=== PATIENT | male | born 1945 | race Caucasian/White ===

== ENCOUNTER → 2019-10-19 | Outpatient (CLI) | payer MEDICARE | END | disposition home or self-care (01) | LOC: OIH 15:08 | PROVIDERS: ATTEND Internal Medicine | DX: J20.9 Acute bronchitis, unspecified (principal); M47.814 Spondylosis without myelopathy or radiculopathy, thoracic region | CPT/HCPCS: 71046 ==

== ENCOUNTER → 2020-04-26 | Outpatient (CLI) | payer MEDICARE | END | disposition home or self-care (01) | LOC: OIH 14:58 | PROVIDERS: ATTEND Internal Medicine | DX: M47.814 Spondylosis without myelopathy or radiculopathy, thoracic region (principal); R07.9 Chest pain, unspecified | CPT/HCPCS: 71046; 72070 ==

== ENCOUNTER 2020-06-12 17:59 | Inpatient (IN) | payer MEDICARE ==
[~2020-06-12] VITALS: Ht 175.3 cm; Wt 49.2 kg
[2020-06-12 19:12] LABS: BASOPHILS % (AUTO) 0.4 % (0.0-5.0); EOSINOPHILS % (AUTO) 0.1 % (0.0-8.0); LYMPHOCYTES % (AUTO) 14.8 % (21.0-51.0); MEAN CORPUSCULAR HEMOGLOBIN 27.6 pg (27.0-33.0); MEAN CORPUSCULAR HGB CONC 32.7 g/dL (32.0-36.0); MEAN CORPUSCULAR VOLUME 84.5 fL (79-99); MONOCYTES % (AUTO) 8.8 % (3.0-13.0); NEUTROPHILS % (AUTO) 75.3 % (40.0-77.0); PLATELET COUNT (AUTO) 279 K/uL (130-400); RED BLOOD CELL COUNT(AUTO) 5.21 MIL/uL (4.50-6.20); RED CELL DISTRIBUTION WIDTH 13.9 % (11.0-15.5); WHITE BLOOD COUNT (AUTO) 15.8 K/uL (4.8-10.8)
[2020-06-12 19:37] LABS: CREATININE 1.4 mg/dL (0.5-1.5); INR 1.02 (0.85-1.15); PARTIAL THROMBOPLASTIN TIME 24.9 SEC (26.3-35.5); POTASSIUM 4.1 mmol/L (3.5-5.1)
[2020-06-12 19:51] LABS: ALBUMIN 3.9 g/dL (3.5-5.0); BILIRUBIN,DIRECT 0.3 mg/dL (0.0-0.3); BILIRUBIN,TOTAL 1.9 mg/dL (0.2-1.0); TOTAL PROTEIN, SERUM 8.1 g/dL (6.0-8.3)
[2020-06-12 19:56] LABS: APPEARANCE,URINE Cloudy (CLEAR); BILIRUBIN,URINE Negative (NEGATIVE); COLOR,URINE Yellow (YELLOW); GLUCOSE, URINE (UA) Negative (NEGATIVE); KETONES,URINE Trace mg/dL (NEGATIVE); LEUKOCYTE ESTERASE ,URINE Negative (NEGATIVE); NITRATE,URINE Negative (NEGATIVE); OCCULT BLOOD,URINE Negative (NEGATIVE); PROTEIN,URINE Negative (NEGATIVE)
[2020-06-12 20:14] LABS: BACTERIA,URINE Rare /HPF (None Seen); RBC,URINE 0-1 /HPF (0-1); SQUAMOUS EPITHELIAL CELL,UR Few /HPF (0-2); WBC,URINE 0-1 /HPF (0-1)
[2020-06-12] MEDS ORDERED: 1/2 NORMAL SALINE 1,000 ML IV SCH (23:45)
[2020-06-13 08:22] VITALS: BP 140/83
[2020-06-13] MEDS: 1/2 NORMAL SALINE 1,000 ML IV SCH ×2 (09:03→21:19)
[2020-06-13] MEDS: CEFTRIAXONE SODIUM 1 GM IVP SCH (09:03)
[2020-06-13 09:23] LABS: MYOGLOBIN 226 ng/mL (10-92); TROPONIN I < 0.04 ng/mL (0.00-0.06)
[2020-06-13 09:25] LABS: CREATINE KINASE, TOTAL 721 U/L (21-232)
[2020-06-13 11:45] VITALS: BP 120/66
--- NOTE | 2020-06-13 12:24 | NUR ---
PATIENT IS A POOR HISTORIAN, DOES NOT KNOW MEDICAL HISTORY OR WHAT MEDICATIONS HE TAKES. UNABLE TO REACH HIS WITH THE PHONE NUMBER LISTED ON FACESHEET.
--- NOTE | 2020-06-13 12:57 | NUR ---
CHART REVIEWED. ATTEMPTED TO CALL REBECCA, SPOUSE, AT NUMBER ON CHART [phone]. ALSO CALL TO [phone] LISTED ON FACE SHEET PATIENTS NUBMER TO VOICE MAIL ON BOTH NUMBERS CALL TO DR. MORENO OFFICE NUMBER- REQUESTING ALTERNATE CONTACT. TRANSFERRED TO VOICE MAIL Addendum: 06/13/20 at 1303 by SENA GARCIA RN Amended: Links added.
[2020-06-13 14:09] LABS: MYOGLOBIN 174 ng/mL (10-92); TROPONIN I < 0.04 ng/mL (0.00-0.06)
[2020-06-13 14:14] LABS: CREATINE KINASE, TOTAL 604 U/L (21-232)
[2020-06-13 16:00] VITALS: BP 107/60
[2020-06-13 20:15] LABS: MYOGLOBIN 171 ng/mL (10-92); TROPONIN I < 0.04 ng/mL (0.00-0.06)
[2020-06-13 20:18] VITALS: BP 112/61
[2020-06-13 20:20] LABS: CREATINE KINASE, TOTAL 566 U/L (21-232)
[2020-06-13 22:59] VITALS: BP 116/50
[2020-06-14 03:24] VITALS: BP 116/60
[2020-06-14 05:19] LABS: BASOPHILS % (AUTO) 0.6 % (0.0-5.0); EOSINOPHILS % (AUTO) 0.2 % (0.0-8.0); HEMATOCRIT 41.7 % (42-54); LYMPHOCYTES % (AUTO) 17.5 % (21.0-51.0); MEAN CORPUSCULAR HEMOGLOBIN 27.2 pg (27.0-33.0); MEAN CORPUSCULAR HGB CONC 32.6 g/dL (32.0-36.0); MEAN CORPUSCULAR VOLUME 83.4 fL (79-99); MONOCYTES % (AUTO) 7.8 % (3.0-13.0); NEUTROPHILS % (AUTO) 73.5 % (40.0-77.0); PLATELET COUNT (AUTO) 240 K/uL (130-400); RED CELL DISTRIBUTION WIDTH 13.6 % (11.0-15.5); WHITE BLOOD COUNT (AUTO) 13.9 K/uL (4.8-10.8)
[2020-06-14 05:32] LABS: CREATININE 1.1 mg/dL (0.5-1.5); POTASSIUM 3.5 mmol/L (3.5-5.1)
--- NOTE | 2020-06-14 06:34 | NUR ---
Maen DELGADO rounded: Seen and examined pt with orders.
[2020-06-14] MEDS: CEFTRIAXONE SODIUM 1 GM IVP SCH (08:24)
[2020-06-14 08:46] VITALS: BP 115/65
[2020-06-14 08:48] VITALS: BP 126/60
[2020-06-14 11:49] VITALS: BP 125/66
--- NOTE | 2020-06-14 13:15 | NUR ---
SS Referral-Assist w/contacting family Call placed to spouse at [phone], no answer/voicemail. Call placed to [facility]PS-Case was closed in 2019 for refusal of services. Call placed to Dr. Gilliam's office; no additional numbers or family contacts but services under [facility]. Call placed to [facility]-spoke with Batsheva who reports no additional phone numbers; stated nursing visits are done outside as couple will not allow nursing inside the home. Batsheva to follow up with this worker if any other information obtained. 16:35-SW spoke with Batsheva/[facility] who stated that she provided this worker's number to nurse. Nurse will request from pt's spouse tomorrow that she contact this worker.
[2020-06-14 16:25] VITALS: BP 143/63
--- NOTE | 2020-06-14 16:25 | NUR ---
IA NOT DONE. Both numbers listed go to voicemail.
--- NOTE | 2020-06-14 17:02 | NUR ---
1210 PATIENT SIGNED IM LETTER, I FAXED IM LETTER TO [phone] AND PLACED IN CHART UNDER CONSENT TAB.
[2020-06-14 20:00] VITALS: BP 141/62
[2020-06-15] VITALS: BP 115/63
[2020-06-15 04:00] VITALS: BP 120/66
--- NOTE | 2020-06-15 06:30 | NUR ---
BOO DELGADO rounded: Visited pt with order for CM to discharge plan for shelter and consult APS for pt.
[2020-06-15 07:30] VITALS: BP 149/69
[2020-06-15] MEDS: CEFTRIAXONE SODIUM 1 GM IVP SCH (08:07)
[2020-06-15] MEDS: ACETAMINOPHEN 325 MG TAB PO PRN ×3 (09:08→23:46)
--- NOTE | 2020-06-15 09:30 | NUR ---
SW visited pt's room, attempted interview with pt. Pt. oriented to person and place. Pt. reported that he resides with spouse and that he is independent. Pt. stated that he has been ambulating in the halls independently and is ready to return home. Pt. unable to recall if he has home health visiting. Pt. then requested this worker return at another time, stating that he was not feeling up to interview. Call from NANI Asif doing home visit with spouse and placed call on speaker phone. IVETTE informed of PT eval, recom SNF for Rehab, however, family contact must be provided. Pt's spouse stated that their dtr in law Orly could be contacted at [phone]; CM made aware.
[2020-06-15 11:00] VITALS: BP 97/54
[2020-06-15 16:00] VITALS: BP 127/59
[2020-06-15 20:00] VITALS: BP 126/62
[2020-06-16] VITALS: BP 109/64
[2020-06-16 04:00] VITALS: BP 109/63
[2020-06-16] MEDS: ACETAMINOPHEN 325 MG TAB PO PRN ×2 (05:27→14:14)
--- NOTE | 2020-06-16 06:43 | NUR ---
henny ervin rounded: Visited and talked to pt. said follow up facility transfer please.
[2020-06-16 08:28] VITALS: BP 114/62
[2020-06-16] MEDS: CEFTRIAXONE SODIUM 1 GM IVP SCH (09:45)
[2020-06-16 12:00] VITALS: BP 121/72
--- NOTE | 2020-06-16 14:52 | NUR ---
CM NOTE/PENDING SNF DECISION TALKED TO PATIENT AT BEDSIDE, SEEMED UNAWARE OF SURROUNDINGS. MET WITH PRIMARY NURSE, DANDY CARDOZA. PER NURSE, PATIENT IS NOT AAOX3 AND VERY WEAK, PT EVAL RECOMMENDING SNF FOR PT TREATMENTS. PATIENTS SPOUSE, REBECCA, CALLED, NO ANSWER. ROSELIA, DAUGHTER IN LAW CALLED AND VOICEMAIL LEFT TO DISCUSS SNF OPTIONS. CM TO FOLLOW UP FOR SNF PLANNING.
[2020-06-16 16:00] VITALS: BP 122/54
--- NOTE | 2020-06-16 18:23 | NUR ---
DR. BOO HELMD RE; BS 239 OKAY TO START ISS 1.
[2020-06-16] MEDS ORDERED: GLUCAGON 1MG KIT 1 MG ML IM PRN (18:30)
[2020-06-16] MEDS ORDERED: DEXTROSE 50%-WATER 50 ML DISP.SYRIN IV PRN (18:30)
[2020-06-16 19:59] VITALS: BP 118/62
[2020-06-16] MEDS: INSULIN HUMULIN R 100 UNIT/ML 3ML SQ SCH (20:56)
[2020-06-17] VITALS (7 sets, daily range): BP systolic 90–137; BP diastolic 54–67
[2020-06-17] MEDS: INSULIN HUMULIN R 100 UNIT/ML 3ML SQ SCH ×4 (06:50→20:53)
--- NOTE | 2020-06-17 09:58 | NUR ---
CM NOTE/SNF PLANNING CALLED ROSELIA AT [phone]. WAS ABLE TO GET THRU. PER ROSELIA, HER IS STEPSON SON TO PATIENT AND SHE DOES NOT FEEL COMFORTABLE IN MAKING DECISION FOR PATIENT. INFORMED ME THAT PATIENTS SPOUSE HAS DEMENTIA AND THAT PATIENT USUALLY MAKES DECISION HIMSELF. INFORMED ROSELIA THAT PER NURSING REPORT, PATIENT WAS SLIGHTLY CONFUSED YESTERDAY SO HE WOULD BE UNABLE TO MAKE DECISION HIMSELF. PER ROSELIA, SHE WILL CALL HER (PATIENTS FLOR) AND HE WILL CALL ME IN REGARDS TO DC PLANNING. CM TO WAIT FOR FLOR PHONE CALL TO DISCUS SNF REFERRAL.
[2020-06-17] MEDS: CEFTRIAXONE SODIUM 1 GM IVP SCH (10:19)
[2020-06-17 11:25] LABS: HEMATOCRIT 39.8 % (42-54); MEAN CORPUSCULAR HEMOGLOBIN 27.2 pg (27.0-33.0); MEAN CORPUSCULAR HGB CONC 32.2 g/dL (32.0-36.0); MEAN CORPUSCULAR VOLUME 84.7 fL (79-99); RED BLOOD CELL COUNT(AUTO) 4.7 MIL/uL (4.50-6.20); RED CELL DISTRIBUTION WIDTH 13.3 % (11.0-15.5); WHITE BLOOD COUNT (AUTO) 9.2 K/uL (4.8-10.8)
[2020-06-17 11:38] LABS: BILIRUBIN,TOTAL 0.4 mg/dL (0.2-1.0); POTASSIUM 3.7 mmol/L (3.5-5.1)
[2020-06-18 04:11] VITALS: BP 147/76
[2020-06-18] MEDS: INSULIN HUMULIN R 100 UNIT/ML 3ML SQ SCH ×4 (05:04→20:40)
[2020-06-18 07:09] LABS: HEMATOCRIT 40.1 % (42-54); MEAN CORPUSCULAR HEMOGLOBIN 27.8 pg (27.0-33.0); MEAN CORPUSCULAR HGB CONC 32.4 g/dL (32.0-36.0); MEAN CORPUSCULAR VOLUME 85.9 fL (79-99); RED BLOOD CELL COUNT(AUTO) 4.67 MIL/uL (4.50-6.20); RED CELL DISTRIBUTION WIDTH 13.6 % (11.0-15.5); WHITE BLOOD COUNT (AUTO) 9.7 K/uL (4.8-10.8)
[2020-06-18 07:25] VITALS: BP 124/73
[2020-06-18 07:29] LABS: BILIRUBIN,TOTAL 0.5 mg/dL (0.2-1.0); POTASSIUM 3.8 mmol/L (3.5-5.1); TOTAL PROTEIN, SERUM 6.7 g/dL (6.0-8.3)
[2020-06-18] MEDS: CEFTRIAXONE SODIUM 1 GM IVP SCH (09:35)
[2020-06-18 11:36] VITALS: BP 104/83
[2020-06-18 15:11] VITALS: BP 113/69
[2020-06-18 20:39] VITALS: BP 134/80
[2020-06-18 23:56] VITALS: BP 115/71
[2020-06-19 03:46] VITALS: BP 129/78
[2020-06-19] MEDS: INSULIN HUMULIN R 100 UNIT/ML 3ML SQ SCH ×4 (06:21→20:56)
[2020-06-19 07:44] VITALS: BP 101/65
[2020-06-19] MEDS: CEFTRIAXONE SODIUM 1 GM IVP SCH (09:55)
[2020-06-19] MEDS ORDERED: FAMO20TA8 PO (10:07)
[2020-06-19] MEDS ORDERED: GABA300T25 PO (10:07)
[2020-06-19] MEDS ORDERED: TRAM50TA4 PO (10:07)
[2020-06-19] MEDS ORDERED: GLIM2TAB30 PO (10:07)
[2020-06-19] MEDS ORDERED: FURO40TA5 PO (10:07)
[2020-06-19] MEDS ORDERED: CARV3.12 PO (10:07)
[2020-06-19] MEDS ORDERED: GLIP1TAB6 PO (10:07)
[2020-06-19] MEDS ORDERED: ATOR40TA71 PO (10:07)
[2020-06-19] MEDS ORDERED: INSU100I26 SQ (10:07)
[2020-06-19] MEDS ORDERED: SPIR25TA6 PO (10:07)
[2020-06-19] MEDS ORDERED: ESCI20TA36 PO (10:07)
[2020-06-19 11:20] VITALS: BP 109/57
[2020-06-19] MEDS ORDERED: FUROSEMIDE 40 MG TABLET PO SCH (14:00)
[2020-06-19] MEDS ORDERED: FAMOTIDINE 20MG TAB 20 MG TAB PO SCH (14:00)
[2020-06-19] MEDS ORDERED: INSULIN GLARGINE 100 UNITS/ML 10 ML VIAL SQ SCH (14:00)
[2020-06-19] MEDS: GABAPENTIN 300 MG CAPSULE PO SCH ×2 (14:17→20:55)
[2020-06-19 15:32] VITALS: BP 131/66
[2020-06-19] MEDS: METFORMIN HCL 500 MG TABLET PO SCH (17:54)
[2020-06-19] MEDS: GLIPIZIDE 5 MG TABLET PO SCH (17:54)
[2020-06-19 19:54] VITALS: BP 129/66
[2020-06-19] MEDS: ATORVASTATIN CALCIUM 40 MG TABLET PO SCH (20:53)
[2020-06-19] MEDS: CARVEDILOL 3.125 MG TABLET PO SCH (20:54)
[2020-06-19] MEDS: SPIRONOLACTONE 25 MG TAB PO SCH (20:54)
[2020-06-19] MEDS: GLIMEPIRIDE 2 MG TABLET PO SCH (20:54)
[2020-06-19] MEDS: TRAMADOL HCL 50 MG TABLET PO SCH (20:55)
[2020-06-19 23:08] VITALS: BP 115/72
[2020-06-20] MEDS: GABAPENTIN 300 MG CAPSULE PO SCH ×4 (01:53→22:28)
[2020-06-20 03:05] VITALS: BP 107/67
[2020-06-20 05:10] LABS: HEMATOCRIT 41.1 % (42-54); MEAN CORPUSCULAR HEMOGLOBIN 27.7 pg (27.0-33.0); MEAN CORPUSCULAR HGB CONC 31.6 g/dL (32.0-36.0); MEAN CORPUSCULAR VOLUME 87.4 fL (79-99); RED BLOOD CELL COUNT(AUTO) 4.7 MIL/uL (4.50-6.20); RED CELL DISTRIBUTION WIDTH 13.6 % (11.0-15.5); WHITE BLOOD COUNT (AUTO) 8.8 K/uL (4.8-10.8)
[2020-06-20 05:31] LABS: ALBUMIN 3.1 g/dL (3.5-5.0); BILIRUBIN,TOTAL 0.4 mg/dL (0.2-1.0); CREATININE 0.3 mg/dL (0.5-1.5); POTASSIUM 4.1 mmol/L (3.5-5.1); TOTAL PROTEIN, SERUM 7.1 g/dL (6.0-8.3)
[2020-06-20] MEDS: INSULIN HUMULIN R 100 UNIT/ML 3ML SQ SCH ×4 (05:37→21:00)
[2020-06-20 07:55] VITALS: BP 125/69
--- NOTE | 2020-06-20 08:05 | NUR ---
CHART AND DC PLANNING ATTMEPTS REVIEWED. REVIEWED NOTES BY PT. PATIENT AMBULATING BETTER PER NOTES WILL TALK TO [facility] WHEN OFFICE OPENS RE INCREASED SUPPORT AT HOME IF UNABLE TO GET KATE FOR SNF.
[2020-06-20] MEDS: CEFTRIAXONE SODIUM 1 GM IVP SCH (09:39)
[2020-06-20] MEDS: TRAMADOL HCL 50 MG TABLET PO SCH ×2 (09:41→22:29)
[2020-06-20] MEDS: SPIRONOLACTONE 25 MG TAB PO SCH ×2 (09:41→22:27)
[2020-06-20] MEDS: GLIMEPIRIDE 2 MG TABLET PO SCH ×2 (09:42→22:28)
[2020-06-20] MEDS: CITALOPRAM 20 MG TABLET PO SCH (09:42)
[2020-06-20] MEDS: CARVEDILOL 3.125 MG TABLET PO SCH ×2 (09:42→22:28)
[2020-06-20] MEDS: GLIPIZIDE 5 MG TABLET PO SCH ×2 (09:45→16:40)
[2020-06-20] MEDS: METFORMIN HCL 500 MG TABLET PO SCH ×2 (09:45→16:40)
[2020-06-20 12:04] VITALS: BP 125/68
--- NOTE | 2020-06-20 13:00 | NUR ---
Dr Herbert at bedside Pt evaluated. Piedad DELGADO states no immediate intervention required for patient's back pain at this time. Pt should follow up with him on outpatient basis after discharge.
--- NOTE | 2020-06-20 14:35 | NUR ---
DISCHARGE BARRIERS VS DISCHARGE PROGRESS SPOKE TO PATIENT AT BEDSIDE. ALERT AND ORIETNED. MUCH MORE ALREAT THATN LAST WEEK WHEN S CM ATTEMPTED TO DO IA. ALL NOTES REVIEWED. SPOKE TO [facility] , LASHA, STATES YES PT AND SPOUE ARE THEIR CLIENTS AND WILL CONTINUE TO GO THERE. STATE HOME NOT LIVABLE, STATES APS OPEN, STATES PATIENT AND SPOUSE TO NOT [facility] AND ALL HH VISITS DONE OUTSIDE BUT THEY ARE GLAD TO PICK PATIENT UP A CLIENT WHEN HE IS RELEASED [facility]. SPOKE TO [facility] ; STATES THEY ARE ONLY WORKING WITH PATIENT ONCE DAILY AND NEED ORDER TO INCREASE TO 2X DAY= ALSO THEY FEEL THAT PATIENT IS TOO CONFUSED TO GO HOME. ADVISED THEM THIS CM WILL REVIEW THEIR NOTES AFTER THEIR SESSION BECAUSE NOTES FROM YESTERDAY SAYS MIN ASSIST. SPOKE TO DAUGHTER IN LAW VELOZ- STATES HE SPOUSE SAVITA WAS NOT RAISED BY THE DA- REBECCA/BENITA GUO HAD TWO OTHER DAUGHTERS, BOTH , AND GRAND KIDS ARE ALL SCATTERED,, NONE IN [place], OLDEST IS ONLY 20 NOT ABLE TO MAKE DECISIONS FOR GRANDPARENTS. STATES SON SAVITA AND DAUGHTER IN LAW JUDGE ARE *NOT WANTING* TO MAKE DECISIONS FOR PATIENT. WENT BACK TO BEDSIDE TO DISCUSS DC PLAN . PATIENT STATES HAS BILLS TO PAY. WILLING TO GO TO ANY SNF EXCEPT [facility], BT HAS TO GET HOME TO PAY HIS BILLS. ADVISED PT MAYBE HE COULD TALK TO HIS [place]LORD VIA PHONE TO EXPLAIN. PATIENT STATES NEEDS HIS PHONE, CAME WITHOUT CALL TO [facility]- STATES THEY WILL HAVE TH ENURSE DROP HIS PHONE OFF AT [facility] WILL SNOQUALMIE BACK AFTER PATIENT HAS PHONE AND HAS MADE ARRANGEMR. PLAN [facility] TOMORROW Addendum: 06/20/20 at 1447 by SEAN GARCIA RN CM Amended: Links added.
[2020-06-20 16:15] VITALS: BP 122/60
[2020-06-20] MEDS ORDERED: PROMETHAZINE HCL 25 MG TABLET PO PRN (16:15)
[2020-06-20 20:25] VITALS: BP 128/73
[2020-06-20] MEDS: ATORVASTATIN CALCIUM 40 MG TABLET PO SCH (22:27)
[2020-06-21 00:11] VITALS: BP 137/61
[2020-06-21 04:37] VITALS: BP 126/67
[2020-06-21] MEDS: INSULIN HUMULIN R 100 UNIT/ML 3ML SQ SCH ×4 (06:39→16:30)
[2020-06-21 08:13] VITALS: BP 114/60
--- NOTE | 2020-06-21 08:33 | NUR ---
NEUROLOGIST MD WANG AT BEDSIDE FOR PT EVALUATION. PT ANSWERS ORIENTATION QUESTIONS APPROPRIATELY.
[2020-06-21] MEDS: CARVEDILOL 3.125 MG TABLET PO SCH (09:00)
[2020-06-21] MEDS: CEFTRIAXONE SODIUM 1 GM IVP SCH (09:20)
[2020-06-21] MEDS: METFORMIN HCL 500 MG TABLET PO SCH ×2 (09:21→16:34)
[2020-06-21] MEDS: GLIMEPIRIDE 2 MG TABLET PO SCH (09:22)
[2020-06-21] MEDS: TRAMADOL HCL 50 MG TABLET PO SCH (09:22)
[2020-06-21] MEDS: GABAPENTIN 300 MG CAPSULE PO SCH ×2 (09:22→16:34)
[2020-06-21] MEDS: CITALOPRAM 20 MG TABLET PO SCH (09:23)
[2020-06-21] MEDS: SPIRONOLACTONE 25 MG TAB PO SCH (09:24)
[2020-06-21] MEDS: GLIPIZIDE 5 MG TABLET PO SCH ×2 (09:24→16:34)
[2020-06-21 11:00] VITALS: BP 120/72
--- NOTE | 2020-06-21 15:51 | NUR ---
KATE RECSobeida FROM PATIENT FOR SNF . REFERRAL SENT AND PATIENT APPROVED. DEEPIKA NEG, PASSR AND ALL INFO SENT. NURSE PENDING REPORT; ATTEMPTED, NURSE AT SNF STATED ACCEPTANCE NOT VERIFIED... CALL TO [facility]E TO CONFIRM THAT PATIENT WILL BE ACCEPTED. VAN TRANSPORT Addendum: 06/21/20 at 1555 by SEAN GARCIA RN CM Amended: Links added.
--- NOTE | 2020-06-21 16:21 | NUR ---
REPORT Report called to NANI Sarabia at [facility]. All questions answered and concerns addressed. No states she will alert [facility] parts delivery driver for patient pickup and transport.
--- NOTE | 2020-06-21 17:31 | NUR ---
NO INSULIN GIVEN PT BEING TRANSPORTED TO [facility]. NO INSULIN COVERAGE ADMINISTERED. Addendum: 06/21/20 at 1735 by KHALIDA CRAWFORD RN RN PT TRANSPORTED TO [facility] VIA WHEELCHAIR [facility].
--- NOTE | 2020-06-22 09:55 | NUR ---
[facility]-Call made to APS, Report made, re-pt. transferred to [facility] and spouse home alone. Reference #[id number]--[id number], ID#[id number]
== END 2020-06-21 17:31 | DRG 193 ==
LOC: EDH 17:59 → OBSVTOIN 22:04 → EDHIP 22:04 → 4AH 06-13 08:00
PROVIDERS: ADMIT Internal Medicine; ATTEND Internal Medicine
DX: J18.1 Lobar pneumonia, unspecified organism (principal); G93.41 Metabolic encephalopathy; L72.3 Sebaceous cyst; M48.00 Spinal stenosis, site unspecified; M47.816 Spondylosis without myelopathy or radiculopathy, lumbar region; E11.9 Type 2 diabetes mellitus without complications; F02.80 Dementia in other diseases classified elsewhere, unspecified severity, without behavioral disturbance, psychotic disturbance, mood disturbance, and anxiety; G30.9 Alzheimer's disease, unspecified; I10 Essential (primary) hypertension; M48.02 Spinal stenosis, cervical region; M48.061 Spinal stenosis, lumbar region without neurogenic claudication; Z53.20 Procedure and treatment not carried out because of patient's decision for unspecified reasons; M19.90 Unspecified osteoarthritis, unspecified site
CPT/HCPCS: 36415; 70450; 70551; 71045; 72141; 72146; 72148; 80048; 80053; 80076; 81001; 82140; 82550; 82948; 83874; 84484; 85025; 85027; 85610; 85651; 85730; 87070; 87076; 87426; 93005; 97039; G0378; J0696; J1815